=== PATIENT | female | born 1950 | race Caucasian/White ===

== ENCOUNTER 2024-10-25 09:11 | Emergency (ER) | payer MEDICARE, OTHER, SELFPAY ==
[2024-10-25] VITALS (12 sets, daily range): BP systolic 150–195; BP diastolic 68–88; PULSE 63–79; RESP 18–23; TEMP 36.5; O2SAT 91–95; BMI 19.3
--- NOTE | 2024-10-25 09:31 | ED.SOB ---
HPI - SOB/Dyspnea General Chief Complaint: Shortness of Breath/Dyspnea Stated Complaint: SOB Time Seen by Provider: 10/25/24 09:31 Source: patient Mode of arrival: Ambulatory Limitations: no limitations History of Present Illness HPI Narrative: 74-year-old female presenting for shortness of breath. Has a history of asthma, She states that she has been having upper respiratory symptoms since Wednesday10/22/2024. She states that she is having worsening shortness of breath therefore decided come into the ED for further evaluation treatment. She states that this does feel similar to her history of asthma attacks, she denies any other symptoms at this time. States that she did try taking her rescue inhaler without much relief therefore decided come into the ED for further evaluation treatment. At time of evaluation patient is speaking in full sentences protecting airway but [place] expiratory wheezes noted, she is not requiring supplemental oxygen Related Data Previous Rx's Medication Instructions Recorded albuterol sulfate 90 mcg/actuation 2 inh inhalation Q4-6H PRN 10/25/24 breath activated powder inhaler shortness of breath or wheezing #1 ea prednisone 20 mg tablet 20 mg PO BID 5 days #10 tabs 10/25/24 Allergies Allergy/AdvReac Type Severity Reaction Status Date / Time No Known Drug Allergies Allergy Verified 10/25/24 09:18 Review of Systems Review of Systems Narrative: General: Denies fever, chills, weight loss HEENT: Denies headache, eye drainage, eye irritation, head trauma, sore throat, voice change Cardiovascular: Denies any chest pain, palpitations, tachycardia Respiratory: Positive shortness of breath, wheeze, denies cough, stridor GI/: Denies any abdominal pain, nausea, vomiting, diarrhea, bright red blood per rectum, melanotic stools, urinary frequency, urinary retention, dysuria, hematuria MSK: Denies any joint pain, muscle pains, swelling Skin: Denies any rashes, lesions, discoloration Neuro: Denies any headache, lightheadedness, dizziness, fainting, weakness Psych: Denies SI/HI Patient History Social History Smoking Status: Unknown if ever smoked Smoking Status: Unknown if ever smoked Exam Narrative Exam Narrative: General: Cooperative, well-developed, not in acute distress HEENT: Normocephalic, atraumatic, PERRLA, normal sclera, eyelids normal Neck: Active full range of motion, atraumatic Chest: Normal to inspection, negative crepitus, no overlying erythema ecchymosis Respiratory: Moderate bilateral expiratory wheezes in all lung hernandez, patient is speaking in full sentences protecting airway no voice changes no stridor no trismus Cardiology: Regular rate rhythm negative gallop, murmur, rubs GI/: No tenderness to palpation, soft, non rigid, normal to inspection, exam deferred MSK: Full active range of motion in all 4 extremities, atraumatic, no tenderness to palpation of any bony prominences Skin: No rashes or lesions noted Neuro: Alert awake oriented x3, moves all 4 extremities spontaneously, cranial nerves intact, able to answer all questions appropriately follows commands appropriately Psych: Cooperative, negative suicidal or homicidal ideations Initial Vital Signs Initial Vital Signs: Vital Signs Temperature 97.7 F 10/25/24 09:12 Pulse Rate 71 10/25/24 09:12 Respiratory Rate 23 10/25/24 09:12 Blood Pressure 195/88 H 10/25/24 09:12 Pulse Oximetry 93 10/25/24 09:12 Oxygen Delivery Method Room Air 10/25/24 09:12 Course Orders Ordered: ED Orders 10/25/24 09:17 RT Consult Eval and Treat NOW 10/25/24 09:33 XR chest 1V Stat EKG-12 Lead Stat 10/25/24 09:41 Covid-19 + FLU A/B + RSV - PCR Stat 10/25/24 10:04 Complete Blood Count AUTO DIFF Stat Comprehensive Metabolic Panel Stat Lipase Stat MAG [Magnesium] Stat NT-proBNP (BNP-Adult 18+) Stat PT [Prothrombin Time INR] Stat PTT Partial Thromboplastin Neymar Stat Troponin & CK Cardiac Panel Stat Albuterol (Albuterol 2.5 Mg/3 Ml Neb (Adult)) 2.5 mg INH [id number] PRN PRN Reason: Shortness Of Breath Last Admin: 10/25/24 10:36 Dose: 2.5 mg Documented By: WAYNE Discontinued Medications Albuterol (Albuterol 2.5 Mg/3 Ml Neb (Adult)) 2.5 mg INH NOW ONE Stop: 10/25/24 11:15 Last Admin: 10/25/24 12:00 Dose: 2.5 mg Documented By: ASTON Albuterol/Ipratropium (Albuterol/Ipratropium 3 Ml Ampul) 3 ml INH NOW ONE Stop: 10/25/24 09:30 Last Admin: 10/25/24 09:35 Dose: 3 ml Documented By: WAYNE Magnesium Sulfate (Magnesium Sulfate) 2 gm in 50 mls @ 150 mls/hr IV NOW ONE Stop: 10/25/24 09:55 Last Admin: 10/25/24 09:44 Dose: 150 mls/hr Documented By: ASTON(2) Co-signed By: SHANICE Methylprednisolone (Methylprednisolone 125 Mg/2 Ml Vial) 125 mg IV NOW ONE Stop: 10/25/24 09:37 Last Admin: 10/25/24 09:44 Dose: 125 mg Documented By: ASTON(2) Vital Signs Vital signs: Vital Signs - 8 hr 10/25/24 09:12 10/25/24 09:38 10/25/24 09:45 Temperature 97.7 F Pulse Rate 71 77 75 Respiratory Rate 23 18 Blood Pressure 195/88 H Pulse Oximetry 93 92 94 Oxygen Delivery Method Room Air Room Air 10/25/24 10:00 10/25/24 10:00 10/25/24 10:30 Temperature Pulse Rate 69 64 Respiratory Rate 20 Blood Pressure 155/68 H Pulse Oximetry 94 95 Oxygen Delivery Method 10/25/24 10:30 10/25/24 10:37 10/25/24 11:00 Temperature Pulse Rate 63 70 Respiratory Rate 18 22 Blood Pressure 170/74 H Pulse Oximetry 94 95 Oxygen Delivery Method Nasal Cannula 10/25/24 11:30 10/25/24 11:31 10/25/24 11:31 Temperature Pulse Rate 72 69 Respiratory Rate 20 20 Blood Pressure 157/68 H Pulse Oximetry 93 93 Oxygen Delivery Method MDM - SOB/Dyspnea Differential Diagnosis Differential diagnosis: Likely acute exacerbation of chronic obstructive airways disease, congestive heart failure, community acquired pneumonia, asthma with exacerbation and other (Electrolyte abnormality, COVID, flu, RSV) Lab Data 10/25/24 10:04 10/25/24 10:04 Labs: Lab Results 10/25/24 10/25/24 Range/Units 09:41 10:04 WBC 5.3 (4.5-11.0) X10^3/uL RBC 4.24 (4.0-5.2) X10^6/uL Hgb 13.5 (12.0-16.0) g/dL Hct 39.6 (36-46) % MCV 93.3 (80-100) fL MCH 31.7 (26-34) PG MCHC 34.0 (30-36) % RDW 12.8 (11.6-14.8) % Plt Count 189 (150-400) X10^3/uL Neut % (Auto) 65.5 (50-75) % Lymph % (Auto) 8.9 L (25-40) % Ballard % (Auto) 10.5 (3-14) % Eos % (Auto) 14.7 H (2-4) % Baso % (Auto) 0.4 (0-2) % Neut # (Auto) 3500 (4177-5076) /uL Lymph # (Auto) 500 L (7840-0483) /uL Ballard # (Auto) 600 (0-900) /uL Eos # (Auto) 800 H (0-450) /uL Baso # (Auto) 0 (0-100) /uL PT 12.4 (9.4-12.5) SECONDS INR 1.1 (0.9-1.3) APTT 31 (25.1-36.5) SECONDS Sodium 138 (137-145) mmol/L Potassium 4.3 (3.4-5.1) mmol/L Chloride 103 (98-107) mmol/L Carbon Dioxide 26 (22-32) mmol/L BUN 8 (7-17) mg/dL Creatinine 0.58 (0.52-1.04) mg/dL Estimated GFR > 60 (>60) mL/min BUN/Creatinine Ratio 13.8 (6-22) Glucose 99 (80-110) mg/dL Calcium 9.4 (8.4-10.2) mg/dL Magnesium 2.1 (1.6-2.3) mg/dL Total Bilirubin 0.5 (0.2-1.3) mg/dL AST 28 (14-36) IU/L ALT 21 (<35) IU/L Alkaline Phosphatase 80 (38-126) U/L Total Creatine Kinase 47 (30-135) U/L Troponin I < 0.012 (0.01-0.034) ng/mL NT-Pro-B Natriuret Pep 478 H (<125) pg/mL Total Protein 8.0 (6.3-8.2) g/dL Albumin 4.7 (3.5-5.0) g/dL Globulin 3.3 (1.7-4.1) g/dL Albumin/Globulin Ratio 1.4 (1.0-2.8) Lipase 24 (23-300) U/L SARS-CoV-2 (PCR) Negative (Negative) Influenza A (RT-PCR) Flu a negative (NEGATIVE) Influenza B (RT-PCR) Flu b negative (NEGATIVE) RSV (PCR) Negative (Negative) Imaging Data Chest x-ray: Radiologist's Impression: [address] [address] XRay Report Signed Patient: Lydia Garcia MR#: [id number] : 1950 Acct:[id number] Age/Sex: 74 / F Date of Service: 10/25/24 Loc: ED Accession Number: [id number] Procedure: XR chest 1V Ordering Provider: Oscar Ha D.O. PROCEDURE: XR CHEST 1V INDICATIONS: sob TECHNIQUE: One view of the chest was acquired. COMPARISON: None. FINDINGS: Surgical changes and devices: None. Lungs and pleura: Lungs are clear. No pleural effusions or pneumothorax. Mediastinum: Mediastinal contours appear normal. Heart size is prominent. Bones and chest wall: No suspicious bony lesions. Overlying soft tissues appear unremarkable. IMPRESSION: No acute pulmonary process. ECG Data Interpretation: EKG interpreted ED physician sinuses 9 beats per minute QTC [address] changes no STEMI MDM Narrative Medical decision making narrative: 74-year-old female with a history of asthma presenting for shortness of breath wheeze. States that 3 days ago started feeling upper respiratory symptoms, states that this did trigger her asthma, has been using her inhaler with mild relief but got worse today therefore decided come into the ED for further evaluation treatment. Upon initial evaluation patient with moderate expiratory wheezes bilaterally not requiring supplemental oxygen, she is speaking in full sentences protecting airway, patient had cardiac workup as well as magnesium, Solu-Medrol, albuterol here in the emergency department. Patient without any acute cardiopulmonary abnormality on chest x-ray, EKG nonischemic in nature 1048: Re-evaluated, improved auscultation in bilateral lung hernandez, mild expiratory wheezes, he is still not requiring any supplemental oxygen, states that she does feel better, we will continue to monitor 1234: Patient re-evaluated, significant improvement of symptoms after administration of magnesium, Solu-Medrol, 3 breathing treatments, patient states that she feels comfortable going home with outpatient follow up, did inform her to reach out to her primary care doctor or her asthma doctor for nebulizers, we will send patient home on prednisone as well as send another prescription for her albuterol inhaler. She was given strict return precautions she verbalized understanding of this and agrees to being discharged home with outpatient follow up, patient not requiring any supplemental oxygen at time of discharge Discharge Plan Departure Patient Disposition: Home Clinical Impression: Asthma with exacerbation Instructions: DI for Asthma -- Adult Activity Restrictions/Additional Instructions: Please follow up with your primary care doctor and your security representative Please read the discharge instructions sheet carefully and bring all papers to all doctor follow-up visits, as it may contain information that your doctor may want to see. Disease processes change and evolve, if your symptoms worsen or if you develop any new symptoms that are concerning to you please return for evaluation. Your evaluation today does not show any evidence of any life-threatening/serious illnesses requiring admission to the hospital or surgery. Please follow-up with your doctor for re-evaluation in approximately 1 day. Seek immediate medical attention for any worrisome symptoms. *If you do not have a primary care provider please contact the [facility] Resource line at [phone]. They will ask some questions about your medical history and help get you set up with a doctor in the community. Prescriptions: New prednisone 20 mg tablet 20 mg PO BID 5 Days Qty: 10 0RF albuterol sulfate 90 mcg/actuation aerosol powdr breath activated 2 inh inhalation Q4-6H PRN (Reason: shortness of breath or wheezing) Qty: 1 2RF Stand Alone Forms: Patient Portal/API/Survey
--- NOTE | 2024-10-25 09:33 | DI.RAD.S_ITS ---
PROCEDURE: XR CHEST 1V INDICATIONS: sob TECHNIQUE: One view of the chest was acquired. COMPARISON: None. FINDINGS: Surgical changes and devices: None. Lungs and pleura: Lungs are clear. No pleural effusions or pneumothorax. Mediastinum: Mediastinal contours appear normal. Heart size is prominent. Bones and chest wall: No suspicious bony lesions. Overlying soft tissues appear unremarkable. IMPRESSION: No acute pulmonary process. Dictated by: Pura Aguero M.D. on 10/25/2024 at 9:58 Approved by: Pura Aguero M.D. on 10/25/2024 at 9:58
[2024-10-25] MEDS: ALBUTEROL/IPRATROPIUM 3 ML AMPUL INH (09:35)
[2024-10-25] MEDS: methylPREDNISolone 125 MG/2 ML VIAL IV (09:44)
[2024-10-25] MEDS: MAGNESIUM SULFATE 2 GM/50 ML PIGGYBACK IV (09:44)
[2024-10-25 10:11] LABS: Add Manual Diff / Slide Review NO; Basophils Absolute Auto 0 /uL (0-100); Basophils Percent Auto 0.4 % (0-2); Eosinophils Absolute Auto 800 /uL (0-450); Eosinophils Percent Auto 14.7 % (2-4); Hematocrit 39.6 % (36-46); Hemoglobin 13.5 g/dL (12.0-16.0); Lymphocytes Absolute Auto 500 /uL (1100-4500); Lymphocytes Percent Auto 8.9 % (25-40); Mean Corpuscular Hemoglobin 31.7 PG (26-34); Mean Corpuscular Volume 93.3 fL (80-100); Monocytes Absolute Auto 600 /uL (0-900); Monocytes Percent Auto 10.5 % (3-14); Neutrophils Absolute Auto 3500 /uL (1500-7000); Neutrophils Percent Auto 65.5 % (50-75); Platelet Count 189 X10^3/uL (150-400); Red Blood Cell Count 4.24 X10^6/uL (4.0-5.2); Red Cell Distribution Width 12.8 % (11.6-14.8); White Blood Cell Count 5.3 X10^3/uL (4.5-11.0)
[2024-10-25 10:19] LABS: INR 1.1 (0.9-1.3); Prothrombin Time 12.4 SECONDS (9.4-12.5)
[2024-10-25 10:21] LABS: PTT Partial Thromboplastin Tim 31 SECONDS (25.1-36.5)
[2024-10-25 10:24] LABS: COVID-19 CEPHEID 4-PLEX PCR Negative (Negative); Influenza A - CEPHEID Flu A NEGATIVE (NEGATIVE); Influenza B - CEPHEID Flu B NEGATIVE (NEGATIVE); Respiratory Syncytial Virus Negative (Negative)
[2024-10-25 10:25] LABS: Alanine Aminotransferase 21 IU/L (<35); Albumin 4.7 g/dL (3.5-5.0); Albumin Globulin Ratio 1.4 (1.0-2.8); Alkaline Phosphatase 80 U/L (38-126); Aspartate Aminotransferase 28 IU/L (14-36); BUN Creatinine Ratio 13.8 (6-22); Bilirubin Total 0.5 mg/dL (0.2-1.3); Blood Urea Nitrogen 8 mg/dL (7-17); Calcium 9.4 mg/dL (8.4-10.2); Carbon Dioxide 26 mmol/L (22-32); Chloride 103 mmol/L (98-107); Creatine Kinase 47 U/L (30-135); Estimated Glomerular Filt Rate > 60 mL/min (>60); Globulin 3.3 g/dL (1.7-4.1); Glucose 99 mg/dL (80-110); HEMOLYSIS < 15 (0-50); Lipase 24 U/L (23-300); Magnesium 2.1 mg/dL (1.6-2.3); Potassium 4.3 mmol/L (3.4-5.1); Sodium 138 mmol/L (137-145)
[2024-10-25] MEDS: ALBUTEROL 2.5 MG/3 ML NEB (ADULT) INH ×2 (10:36→12:00)
[2024-10-25 10:37] LABS: NT-proBNP (BNP-Adult 18+) 478 pg/mL (<125); Troponin I < 0.012 ng/mL (0.01-0.034)
--- NOTE | 2024-10-25 11:28 | EKG_ITS ---
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
== END 2024-10-25 12:43 | disposition home or self-care (01) ==
PROVIDERS: Emergency Provider Student in an Organized Health Care Education/Training Program
DX: J45.901 Unspecified asthma with (acute) exacerbation (principal); R06.02 Shortness of breath
CPT/HCPCS: 0241U; 36415; 71045; 80053; 82550; 83690; 83735; 83880; 84484; 85025; 85610; 85730; 93005; 93010; 94150; 94640; 96365; 96366; 96375; 99284; J2919; J3475; J7613